=== PATIENT | male | born 1940 | race African-American/Black ===

== ENCOUNTER 2016-12-19 08:40 | Inpatient (IN) | payer MEDICARE, MEDICAID ==
[2016-12-19] VITALS (38 sets, daily range): BP systolic 127–167; BP diastolic 72–97
[~2016-12-19] VITALS: Ht 185.4 cm; Wt 90.7 kg
[~2016-12-19 08:40] MED LIST: AMLODIPINE BESY10 MG ORAL; CARAFATE1 G1 ORAL; COLACE100 MG ORAL; COREG3.125 MG ORAL; CYMBALTA20 MG ORAL; CYMBALTA30 MG ORAL; DIAZEPAM10 MG ORAL; DIFLUCAN100 MG ORAL; DILAUDID2 MG ORAL; DUONEB 0.5-3(2.53 ML HHN; Dextrose IV; IBUPROFEN600 MG ORAL; LACTULOSE20 GM/301 ORAL; LANTUS5 UNITS SUBQ; LEVAQUIN250 M1 ORAL; LEVEMIR FL100 UNIT/1 SUBQ; LEVOTHYROXINE25 MCG ORAL; LYRICA75 M1 ORAL; MEGACE40 MG PO; MEGESTROL ACETA20 M1 PO; MELATONIN1 MG PO; METFORMIN HCL500 M1 ORAL; METOCLOPRAM5 MG/5 M1 ORAL; METOCLOPRAMIDE H5 M1 ORAL; MIRALAX17 G2 ORAL; MULTIVITAMINS1 EAC8 ORAL; NAPROXEN25 G1 MC; NORCO 5-325 TA1 EACH ORAL; NORVASC10 MG ORAL; NORVASC5 MG ORAL; NOVOLIN R100 UNIT/1 SUBQ; NOVOLOG100 UNITS1 SUBQ; OMEPRAZOLE20 M2 ORAL; OXYCODONE HCL15 M1 ORAL; PRAVASTATIN SOD20 M1 ORAL; PROAIR HFA8.5 GM INH; PROMETHAZINE-C118 M1 ORAL; PROTONIX40 MG ORAL; SENOKOT1 TAB ORAL; SUCRALFATE1 GM/10 ML PO; UNOBMED; VITAMIN C500 M1 ORAL; ZINC SULFATE220 M1 ORAL
[2016-12-19 09:31] LABS: INR 0.9 (0.9-1.1); PROTHROMBIN TIME 9.9 SEC (9.30-11.50)
[2016-12-19] MEDS ORDERED: DIOVAN80 MG ORAL (09:50)
[2016-12-19] MEDS ORDERED: Lidocaine 1% Plain 30 ml INJ ONE (10:07)
[2016-12-19 10:28] LABS: ALANINE AMINOTRANSFERASE 18 U/L (12-78); ALBUMIN/GLOBULIN RATIO 0.8 (1.0-2.7); ANION GAP 9 mmol/L (5-15); ASPARTATE AMINO TRANSFERASE 14 U/L (15-37); CARBON DIOXIDE 26 MMOL/L (21-32); CHLORIDE 107 MMOL/L (98-107); CREATININE 1.2 MG/DL (0.55-1.30); POTASSIUM 3.2 MMOL/L (3.5-5.1); SODIUM 142 MMOL/L (136-145)
--- NOTE | 2016-12-19 10:39 | Pre-Procedure Note/Attestation ---
Pre-Procedure Note/Attestation Complete Prior to Procedure Planned Procedure: not applicable Procedure Narrative: IVC filter retrieval Indications for Procedure Pre-Operative Diagnosis: IVC filter no longer needed Attestation I attest that I discussed the nature of the procedure; its benefits; risks and complications; and alternatives (and the risks and benefits of such alternatives ), prior to the procedure, with the patient (or the patient's legal district sales representative). I attest that, if there was a reasonable possibility of needing a blood transfusion, the patient (or the patient's legal district sales representative) was given the [facility] standardized written summary, pursuant to the Izaiah Harjeet Blood Safety Act ([place] Health and Safety Code # 1645, as amended). I attest that I re-evaluated the patient just prior to the surgery and that there has been no change in the patient's H&P, except as documented below: CHENG FLEMING M.D. Dec 19, 2016 10:39
--- NOTE | 2016-12-19 10:44 | Moderate Sedation - Procedural ---
Moderate Sedation HPI Home Medication Active Scripts Insulin Detemir (LEVEMIR FLEXPEN) 100 Unit/1 Ml Insuln.pen, 10 UNITS SUBQ BID, # 300 UNITS 0 Refills Prov:Deirdre Walshles IRIDOLOGIST 06/27/15 Amlodipine Besylate (Norvasc) 10 Mg Tab, 10 MG ORAL DAILY, #1 TAB Prov:Deirdre Walsh De Anda IRIDOLOGIST 06/27/15 Polyethylene Glycol 3350* (MIRALAX*) 17 Gm Powd.pack, 17 GM ORAL BEDTIME, #1 PACK Prov:Deirdre Walsh De Anda IRIDOLOGIST 04/24/15 Lactulose (LACTULOSE*) 20 Gm/30 Ml Solution, 20 GM ORAL THREE TIMES A DAY for 1 Day, GM Prov:Mata Walshevelin De Anda IRIDOLOGIST 04/24/15 Docusate Sodium* (COLACE*) 100 Mg Capsule, 100 MG ORAL TWICE A DAY, #1 CAP Prov:Mata Walshevelin De Anda IRIDOLOGIST 04/24/15 Reported Medications Valsartan (DIOVAN) 80 Mg Tab, 80 MG ORAL DAILY, TAB 12/19/16 Megestrol Acetate (MEGESTROL ACETATE) 20 Mg Tablet, PO, TAB 09/15/15 Sucralfate (SUCRALFATE) 1 Gm/10 Ml Oral.susp, PO, ML 09/15/15 Insulin Regular, Human* (NOVOLIN R*) 100 Unit/1 Ml Vial, 10 SUBQ AC, UNITS 08/06/15 Insulin Glargine (Lantus) 5 Units Vial, 30 SUBQ BEDTIME, #1 EA 0 Refills 08/06/15 Omeprazole (OMEPRAZOLE) 20 Mg Capsule.dr, 20 MG ORAL DAILY, CAP 08/06/15 Megestrol Acetate (Megestrol Acetate) 40 Mg Tab, 40 MG PO BID, #10 TAB 0 Refills 08/06/15 Pravastatin Sod* (PRAVASTATIN SOD*) 20 Mg Tablet, ORAL BEDTIME, TAB 07/13/15 Naproxen (NAPROXEN) 25 Gm Powder, MC, GM 07/13/15 Duloxetine (Cymbalta) 20 Mg Cap, ORAL DAILY, CAP 07/13/15 Metformin Hcl* (METFORMIN HCL*) 500 Mg Tablet, ORAL TWICE A DAY, TAB 07/13/15 Levothyroxine Sodium* (LEVOTHYROXINE SODIUM*) 25 Mcg Tablet, 25 MCG ORAL DAILY, TAB Take in the morning on an empty stomach, at least 30 minutes before food. 05/16/15 Sennosides (Senna-Gen) 1 Tab Tab, 1 TAB ORAL DAILY, TAB 05/16/15 Pregabalin* (LYRICA*) 75 Mg Capsule, 75 MG ORAL THREE TIMES A DAY, CAP 05/16/15 Ascorbic Acid* (VITAMIN C*) 500 Mg Tablet, 500 MG ORAL DAILY, #30 TAB 0 Refills 05/16/15 Sucralfate* (CARAFATE*) 1 Gm Tablet, 1 GM ORAL FOUR TIMES A DAY, TAB 04/14/15 Patient History Allergies: Coded Allergies: AMOXICILLIN (Verified Allergy, Severe, break out, 12/19/16) AMPICILLIN (Unverified Allergy, Severe, break out , 12/19/16) PENICILLINS (Verified Allergy, Severe, break out , 12/19/16) PAST MEDICAL HISTORY: Past Surgeries: Social History: Pre-Procedural Mod Sedation Pre-Assessment Time: 10:40 Pre-Sedation Assessment: Elective Airway Assessment (Malampati): III Heart: normal Lungs: normal Abdomen: normal Extremities: normal Evaluation Hx of untoward rxns to mod sed: No Procedures/Plans: Radiology Plan for Moderate Sedation: Midazolam, Fentanyl ASA Score: II Informed Consent The nature of the procedure/sedation; its benefits; risks and complications; and alternatives (and the risks and benefits of such alternatives) were discussed with the patient (or their legal car sales representative), prior to the procedure. All questions were answered to the patient's (or their legal car sales representative's) satisfaction and the patient (or their legal car sales representative) gave informed consent to the procedure. I attest that I re-evaluated the patient just prior to the surgery and that there has been no change in the patient's H&P, except as documented below: Post Procedure Assessment Post Procedure TIme: 13:30 Communication: No Apparent Limitation Mental Status: Awake Respiration: Unlabored Skin Condition: WNL Adomen: WNL Nausea: NO Vomiting: NO CHENG FLEMING M.D. Dec 19, 2016 10:44
--- NOTE | 2016-12-19 10:51 | History & Physical ---
History and Physical History & Physicial History of present illness: 75-year-old male with history of inferior vena cava filter placement in 2013 for the venous thrombosis, filter no longer necessary, removal requested by referring physician Dr. Bowling Past medical history: Diabetes, hypertension, deep venous thrombosis Past surgical history: IVC filter, colon resection for CA, L nephrectomy, cholecystectomy, penile prothesis Allergies: Penicillin Review of systems: Left lower quadrant abdominal pain, currently being worked up Physical exam: HEENT: Strabismus Lungs: clear Heart: Regular rate and rhythm Abdomen: Nontender, positive bowel sounds Impression: Patient was resolved deep venous thrombosis, per discussion with referring physician, IVC filter no longer needed Plan: Attempt IVC filter removal. Procedure, possible complications discussed with pt. He agrees to proceed. CHENG FLEMING M.D. Dec 19, 2016 10:51
[2016-12-19] MEDS ORDERED: fentaNYL 100 mcg/2 mL IV ONE (11:36)
[2016-12-19 11:39] LABS: BASOPHILS % (AUTO) 1.2 % (0.0-2.0); LYMPHOCYTES % (AUTO) 36.2 % (20.0-45.0); MEAN CORPUSCULAR HEMOGLOBIN 28.8 PG (27.0-31.0); MEAN CORPUSCULAR HGB CONC 31.3 G/DL (32.0-36.0); MEAN CORPUSCULAR VOLUME 92 FL (80-99); MEAN PLATELET VOLUME 7.3 FL (6.5-10.1); MONOCYTES % (AUTO) 4.9 % (1.0-10.0); NEUTROPHILS % (AUTO) 52.7 % (45.0-75.0); PLATELET COUNT 295 K/UL (150-450); RED BLOOD COUNT 4.78 M/UL (4.70-6.10); RED CELL DISTRIBUTION WIDTH 14.8 % (11.6-14.8); WHITE BLOOD COUNT 5.7 K/UL (4.8-10.8)
--- NOTE | 2016-12-19 13:41 | Brief Operative Note ---
Immediate Post Operative Note Operative Note Pre-op Diagnosis: IVC filter no longer needed Procedure: Inferior vena cavogram, attempted IVC filter retrieval Post-op Diagnosis: Same Findings: other - unable to retrieve IVC filter due to inability to disengage struts from IVC wall. Filter collapsed resulting in significant narrowing of IVC Surgeon: Dayana Coleman Anesthesia: moderate sedation Specimen: none Complications: yes - unable to retrieve IVC filter due to inability to disengage struts from IVC wall. Filter collapsed resulting in significant narrowing of IVC Condition: stable Fluids: none Estimated Blood Loss: minimal Drains: none Implant(s) used?: No CHENG COLEMAN M.D. Dec 19, 2016 13:41
[2016-12-19] MEDS ORDERED: Heparin 25,000u/D5W 500ml 500 ML IV SCH (14:15)
[2016-12-19] MEDS ORDERED: Heparin 5000 units/ml inj IV ONE ×3 (14:15→21:45)
[2016-12-19] MEDS ORDERED: Hydromorphone 0.5mg/0.5ml inj IVP ONE (14:30)
[2016-12-19] MEDS ORDERED: Hydromorphone 0.5mg/0.5ml inj ONE (14:32)
--- NOTE | 2016-12-19 15:24 | Diagnostic Imaging Report ---
Indication: FB evaluation of inferior vena cava filter prior to removal attempts Technique: Supine view of the abdomen Comparison: 05/20/2015 Findings: There is a Cook Alejandro Tulip inferior vena cava filter in the expected position. Surgical clips are demonstrated. Considerable stool is seen in the left colon Impression: Filter confirmed to be a Cook Alejandro Tulip inferior vena cava filter
[2016-12-19] MEDS ORDERED: Nitroglycerin Subl 0.4mg tab SL PRN (15:30)
[2016-12-19] MEDS ORDERED: Miralax 17gm pkt ORAL PRN (15:30)
[2016-12-19] MEDS ORDERED: Hydromorphone 0.5mg/0.5ml inj IVP PRN ×2 (15:30)
--- NOTE | 2016-12-19 15:45 | Internal Med Progress Note ---
Subjective Physician Name Marco Bowling Attending Physician Marco Bowling MD Current Medications Medications (Trade) Dose Ordered Sig/Jose Route PRN Reason Start Time Stop Time Status Last Admin Dose Admin Acetaminophen (Tylenol) 650 mg Q4H PRN ORAL Mild Pain (Pain Scale 1-3) 12/19/16 15:30 01/18/17 15:29 UNV Acetaminophen (Tylenol) 650 mg Q4H PRN ORAL fever 12/19/16 15:30 01/18/17 15:29 UNV Amlodipine Besylate (Norvasc) 10 mg DAILY ORAL 12/19/16 15:30 01/18/17 15:29 UNV Ascorbic Acid (Vitamin C) 500 mg DAILY ORAL 12/20/16 09:00 01/19/17 08:59 UNV Bisacodyl (Dulcolax) 10 mg DAILYPRN PRN RECTAL Constipation 12/19/16 15:30 01/18/17 15:29 UNV Dextrose (Dextrose 50%) STAT PRN IV Hypoglycemia 12/19/16 15:30 01/18/17 15:29 UNV Dextrose (Dextrose 50%) STAT PRN IV Hypoglycemia 12/19/16 15:30 01/18/17 15:29 UNV Docusate Sodium (Colace) 100 mg TWICE A DAY ORAL 12/19/16 18:00 01/18/17 17:59 UNV Duloxetine HCl (Cymbalta) 30 mg DAILY ORAL 12/20/16 09:00 01/19/17 08:59 UNV Heparin Sodium (Porcine) (Heparin 5000 units/ml) 5,000 units ONCE ONCE IV 12/19/16 15:30 12/19/16 15:31 UNV Heparin Sodium/ Dextrose 500 ml @ 32.658 mls/ hr adjust per protocol IV 12/19/16 14:15 01/18/17 14:14 12/19/16 15:34 Heparin Sodium/ Dextrose 500 ml @ 32.658 mls/ hr adjust per protocol IV 12/19/16 15:30 01/18/17 15:29 UNV Hydromorphone HCl (Dilaudid) 0.5 mg Q3HR PRN IVP For Pain 12/19/16 15:30 12/26/16 15:29 UNV Hydromorphone HCl (Dilaudid) 1 mg Q3HR PRN IVP Moderate Pain (Pain Scale 4-6) 12/19/16 15:30 12/26/16 15:29 UNV Hydromorphone HCl (Dilaudid) 2 mg Q3HR PRN IVP Severe Pain (Pain Scale 7-10) 12/19/16 15:30 12/26/16 15:29 UNV Insulin Aspart (NovoLOG) BEFORE MEALS AND HS SUBQ 12/19/16 16:30 01/18/17 16:29 UNV Insulin Detemir (Levemir) 10 units BID SUBQ 12/19/16 18:00 01/18/17 17:59 UNV Irbesartan (Avapro) 75 mg DAILY ORAL 12/20/16 09:00 01/19/17 08:59 UNV Lactulose (Cephulac) 20 gm THREE TIMES A DAY ORAL 12/19/16 18:00 01/18/17 17:59 UNV Levothyroxine Sodium (Synthroid) 25 mcg DAILY ORAL 12/20/16 09:00 01/19/17 08:59 UNV Magnesium Hydroxide (Mom) 30 ml HSPRN PRN ORAL Constipation 12/19/16 15:30 01/18/17 15:29 UNV Metformin HCl (Glucophage) 1,000 mg TWICE A DAY ORAL 12/20/16 08:00 01/19/17 07:59 UNV Nitroglycerin (Ntg) 0.4 mg Q5M PRN SL Prn Chest Pain 12/19/16 15:30 01/18/17 15:29 UNV Ondansetron HCl (Zofran) 4 mg Q6H PRN IVP Nausea & Vomiting 12/19/16 15:30 01/18/17 15:29 UNV Polyethylene Glycol (Miralax) 17 gm BEDTIME ORAL 12/19/16 21:00 01/18/17 20:59 UNV Polyethylene Glycol (Miralax) 17 gm DAILYPRN PRN ORAL Constipation 12/19/16 15:30 01/18/17 15:29 UNV Pravastatin Sodium (Pravachol) 40 mg BEDTIME ORAL 12/19/16 21:00 01/18/17 20:59 UNV Pregabalin (Lyrica) 75 mg THREE TIMES A DAY ORAL 12/19/16 18:00 01/18/17 17:59 UNV Sennosides (Senokot) 1 mg DAILY ORAL 12/20/16 09:00 01/19/17 08:59 UNV Sucralfate (Carafate) 1 gm FOUR TIMES A DAY ORAL 12/19/16 18:00 01/18/17 17:59 UNV Allergies: Coded Allergies: AMOXICILLIN (Verified Allergy, Severe, break out, 12/19/16) AMPICILLIN (Unverified Allergy, Severe, break out , 12/19/16) PENICILLINS (Verified Allergy, Severe, break out , 12/19/16) Subjective awake, alert, responsive, C/O back pain Objective Last Vital Signs Date Time Temp Pulse Resp B/P (MAP) Pulse Ox O2 Delivery O2 Flow Rate FiO2 12/19/16 15:06 97.8 12/19/16 14:38 78 15 141/89 96 Room Air 12/19/16 13:45 3.0 Laboratory Tests Test 12/19/16 09:00 White Blood Count 5.7 K/UL (4.8-10.8) Red Blood Count 4.78 M/UL (4.70-6.10) Hemoglobin 13.8 G/DL (14.2-18.0) L Hematocrit 43.9 % (42.0-52.0) Mean Corpuscular Volume 92 FL (80-99) Mean Corpuscular Hemoglobin 28.8 PG (27.0-31.0) Mean Corpuscular Hemoglobin Concent 31.3 G/DL (32.0-36.0) L Red Cell Distribution Width 14.8 % (11.6-14.8) Platelet Count 295 K/UL (150-450) Mean Platelet Volume 7.3 FL (6.5-10.1) Neutrophils (%) (Auto) 52.7 % (45.0-75.0) Lymphocytes (%) (Auto) 36.2 % (20.0-45.0) Monocytes (%) (Auto) 4.9 % (1.0-10.0) Eosinophils (%) (Auto) 5.0 % (0.0-3.0) H Basophils (%) (Auto) 1.2 % (0.0-2.0) Prothrombin Time 9.9 SEC (9.30-11.50) Prothromb Time International Ratio 0.9 (0.9-1.1) Activated Partial Thromboplast Time 28 SEC (23-33) Sodium Level 142 MMOL/L (136-145) Potassium Level 3.2 MMOL/L (3.5-5.1) L Chloride Level 107 MMOL/L (98-107) Carbon Dioxide Level 26 MMOL/L (21-32) Anion Gap 9 mmol/L (5-15) Blood Urea Nitrogen 12 mg/dL (7-18) Creatinine 1.2 MG/DL (0.55-1.30) Estimat Glomerular Filtration Rate mL/min (>60) Glucose Level 264 MG/DL (74-106) H Calcium Level 9.0 MG/DL (8.5-10.1) Total Bilirubin 0.3 MG/DL (0.2-1.0) Aspartate Amino Transf (AST/SGOT) 14 U/L (15-37) L Alanine Aminotransferase (ALT/SGPT) 18 U/L (12-78) Alkaline Phosphatase 121 U/L (46-116) H Total Protein 7.0 G/DL (6.4-8.2) Albumin 3.1 G/DL (3.4-5.0) L Globulin 3.9 g/dL Albumin/Globulin Ratio 0.8 (1.0-2.7) L Intake and Output 12/19/16 12/20/16 19:00 07:00 Intake Total 850 ml Output Total 0 ml Balance 850 ml Intake IV Total 850 ml Output Estimated Blood Loss 0 ml # Voids 1 Objective General: No acute distress, awake and alert HEENT: NCAT, sclera anicteric, PERRL, EOMI. Neck: Supple, no significant jugular venous distention, Lungs: fair inspiratory effort, no accessory muscle use, , no Wheeze or Rales. Heart: Regular rate and rhythm, normal S1/S2, no murmur Abdomen: soft, nontender, nondistended. Normoactive bowel sounds, Obesity, Midline surgical scar. / Rectal: Refused and deferred. Extremities: No Cyanosis , clubbing or edema. Neuro: A&O x 3, Able to move all extremities Skin: warm, no rashes or lesions Assessment/Plan Assessment/Plan 1. IVC filter thrombosis. 2. Chronic constipation 3. History of colon cancer. 4. Hypertension. 5. Diabetes type 2. 6. Chronic obstructive pulmonary disease. 7. Coronary artery disease. 8. Peptic ulcer disease. 9. Dyslipidemia. 10. Hypothyroidism. Plan: start Heparin Drip discuss with [facility] transfer center. resume home medication monitor labs and BS. Full code Marco Bowling MD Dec 19, 2016 15:45
[2016-12-19 16:35] LABS: BASOPHILS % (AUTO) 0.4 % (0.0-2.0); EOSINOPHILS % (AUTO) 3.9 % (0.0-3.0); LYMPHOCYTES % (AUTO) 27.1 % (20.0-45.0); MEAN CORPUSCULAR HEMOGLOBIN 28.6 PG (27.0-31.0); MEAN CORPUSCULAR HGB CONC 31.1 G/DL (32.0-36.0); MEAN CORPUSCULAR VOLUME 92 FL (80-99); MONOCYTES % (AUTO) 4.5 % (1.0-10.0); NEUTROPHILS % (AUTO) 64.1 % (45.0-75.0); PLATELET COUNT 284 K/UL (150-450); RED BLOOD COUNT 4.34 M/UL (4.70-6.10); RED CELL DISTRIBUTION WIDTH 14.1 % (11.6-14.8)
--- NOTE | 2016-12-19 16:39 | Diagnostic Imaging Report ---
Indication: 75-year-old male with history of removal inferior vena cava filter placement 3 years ago, now presents for removal. Technique: Informed consent obtained prior to procedure. Risks, including but limited to hemorrhage, infection, inferior vena cava damage, unsuccessful retrieval, sedation complication discussed with patient, all questions answered. He indicated his willingness to proceed. Procedure timeout performed. Prior imaging studies reviewed. Total sterile technique, including sterile gloves and hand hygiene, hat, mask, sterile gown, large sterile drape, and preparation with 2% chlorhexidine utilized.. Under real-time ultrasound guidance, puncture right internal jugular vein using 1-gauge micropuncture needle, passage 108 guidewire, insertion 4 Zimbabwean introducer, insertion 0.035 guidewire, over which was passed a 5 [place]an straight flush catheter. This was used to perform inferior venacavogram. Over a guidewire, the catheter was exchanged for the [employer] retrieval assembly. The of of the filter was engaged with the snare, and the retrieval assembly passed over the filter. However, the legs would not disengage from the wall. The the filter was then noted to be collapsed, without reexpanded after release by the sheath. The sheath was therefore exchange for a 16 [place]an sheath. Was reengaged. Aggressive attempts made at passing the sheath over the filter, but again the filter would not disengage from the inferior vena cava wall. After multiple further attempts at passing the sheath over the filter, attempt at filter removal was abandoned. An inferior venacavogram was performed. This demonstrates collapse of the top of the filter, still some expansion of the legs, but collapse of the inferior vena cava over the filter results in significant stenosis and decreased flow velocity. The 16 [place]an sheath was removed, and pressure held until hemostasis was achieved. A heparin drip was ordered. Arrangements were made to transfer the patient to [facility] for urgent advanced filter retrieval Total fluoroscopy time 23.7 minutes. Total dose area product 1157 dGycm2 Comparison: None Findings: Initial inferior venacavogram demonstrates patency of the inferior vena cava. No intracaval or infiltrate thrombus. A lateral strut appears to protrude slightly beyond the caval lumen to the right of midline, and the left shoulder appears to protrude very slightly the, caval lumen to the left of midline. It is uncertain whether this represents true protrusion or just tenting of the wall, however. There is slight narrowing of the inferior vena cava at the filter position. Images after attempted filter retrieval demonstrate collapse of the upper portion of the filter, to which the inferior vena cava wall appears to be attached and therefore is also collapsed. A small filling defect may reflect a small amount of thrombus formation. Impression: Unsuccessful attempt at inferior vena cava filter removal, as described. Procedure unsuccessful due to failure of the hooks to release from the inferior vena cava wall. Failure the filter to reexpand after release, resulting in significant stenosis of the inferior vena cava. For this reason, patient is being anticoagulated and transferred to [facility] for advanced filter retrieval
[2016-12-19] MEDS: NovoLOG Insulin Flexpen SUBQ SCH ×2 (17:36→21:18)
[2016-12-19] MEDS: Lactulose 20gm/30ml UDC ORAL SCH ×2 (18:00→18:04)
[2016-12-19] MEDS: Docusate 100mg cap ORAL SCH (18:04)
[2016-12-19] MEDS: Sucralfate 1gm tab ORAL SCH ×2 (18:05→21:00)
[2016-12-19] MEDS: Lyrica 75mg cap ORAL SCH (18:05)
[2016-12-19] MEDS: Heparin 25,000u/D5W 500ml 500 ML IV SCH ×2 (19:16→22:05)
[2016-12-19] MEDS ORDERED: Miralax 17gm pkt ORAL SCH (21:00)
[2016-12-19] MEDS ORDERED: Milk of Magnesia 30ml Ud ORAL PRN (21:00)
[2016-12-19] MEDS: Levemir Flexpen SUBQ SCH (21:17)
[2016-12-20] VITALS (7 sets, daily range): BP systolic 119–158; BP diastolic 69–86
[2016-12-20 05:48] LABS: ALANINE AMINOTRANSFERASE 21 U/L (12-78); ALBUMIN/GLOBULIN RATIO 0.8 (1.0-2.7); ANION GAP 12 mmol/L (5-15); ASPARTATE AMINO TRANSFERASE 17 U/L (15-37); CALCIUM 9.2 MG/DL (8.5-10.1); CARBON DIOXIDE 24 MMOL/L (21-32); CHLORIDE 107 MMOL/L (98-107); CREATININE 1.1 MG/DL (0.55-1.30); MAGNESIUM 1.8 MG/DL (1.8-2.4); POTASSIUM 3.1 MMOL/L (3.5-5.1); SODIUM 143 MMOL/L (136-145); TOTAL PROTEIN 6.7 G/DL (6.4-8.2)
[2016-12-20 05:50] LABS: PROTHROMBIN TIME 10.9 SEC (9.30-11.50)
[2016-12-20] MEDS: NovoLOG Insulin Flexpen SUBQ SCH ×4 (06:00→21:00)
[2016-12-20] MEDS: Levothyroxine 25mcg tab ORAL SCH (06:03)
[2016-12-20] MEDS: Heparin 25,000u/D5W 500ml 500 ML IV SCH ×4 (07:11→22:28)
[2016-12-20] MEDS: Ascorbic Acid 500mg tab ORAL SCH (08:37)
[2016-12-20] MEDS: Sucralfate 1gm tab ORAL SCH ×4 (08:37→21:22)
[2016-12-20] MEDS: Lyrica 75mg cap ORAL SCH ×3 (08:38→18:09)
[2016-12-20] MEDS: Lactulose 20gm/30ml UDC ORAL SCH ×3 (08:39→18:00)
[2016-12-20] MEDS: Docusate 100mg cap ORAL SCH ×2 (08:39→18:07)
[2016-12-20] MEDS: DULoxetine 30mg cap ORAL SCH (08:40)
[2016-12-20] MEDS: Sennosides 8.6mg ORAL SCH (08:40)
[2016-12-20] MEDS: metFORMIN 500mg tab ORAL SCH ×2 (08:41→18:14)
[2016-12-20] MEDS: Levemir Flexpen SUBQ SCH ×2 (08:44→21:25)
[2016-12-20] MEDS ORDERED: Albuterol ud Inhalation HHN PRN (10:45)
--- NOTE | 2016-12-20 10:49 | Internal Med Progress Note ---
Subjective Date of Service: Dec 20, 2016 Physician Name Callejas,Tyra Attending Physician Marco Bowling MD Current Medications Medications (Trade) Dose Ordered Sig/Jose Route PRN Reason Start Time Stop Time Status Last Admin Dose Admin Acetaminophen (Tylenol) 650 mg Q4H PRN ORAL Headache 12/19/16 15:30 01/18/17 15:29 Acetaminophen (Tylenol) 650 mg Q4H PRN ORAL T>100.5 12/19/16 15:30 01/18/17 15:29 Amlodipine Besylate (Norvasc) 10 mg DAILY ORAL 12/19/16 16:00 01/18/17 15:59 12/20/16 08:39 Ascorbic Acid (Vitamin C) 500 mg DAILY ORAL 12/20/16 09:00 01/19/17 08:59 12/20/16 08:37 Bisacodyl (Dulcolax) 10 mg DAILYPRN PRN RECTAL Constipation 12/19/16 15:30 01/18/17 15:29 Dextrose (Dextrose 50%) STAT PRN IV Hypoglycemia 12/19/16 16:00 01/18/17 15:59 Docusate Sodium (Colace) 100 mg TWICE A DAY ORAL 12/19/16 18:00 01/18/17 17:59 12/20/16 08:39 Duloxetine HCl (Cymbalta) 30 mg DAILY ORAL 12/20/16 09:00 01/19/17 08:59 12/20/16 08:40 Heparin Sodium/ Dextrose 500 ml @ 30.844 mls/ hr adjust per protocol IV 12/20/16 06:45 01/19/17 06:44 12/20/16 09:45 Hydromorphone HCl (Dilaudid) 0.5 mg Q3H PRN IVP Mild Pain (Pain Scale 1-3) 12/19/16 15:30 12/26/16 15:29 Hydromorphone HCl (Dilaudid) 1 mg Q3H PRN IVP Moderate Pain (Pain Scale 4-6) 12/19/16 15:30 12/26/16 15:29 Hydromorphone HCl (Dilaudid) 2 mg Q3H PRN IVP Severe Pain (Pain Scale 7-10) 12/19/16 15:30 12/26/16 15:29 12/20/16 07:57 Insulin Aspart (NovoLOG) BEFORE MEALS AND HS SUBQ 12/19/16 17:00 01/18/17 16:59 12/20/16 06:00 Insulin Detemir (Levemir) 10 units Q12HR SUBQ 12/19/16 21:00 01/18/17 20:59 12/20/16 08:44 Irbesartan (Avapro) 75 mg DAILY ORAL 12/20/16 09:00 01/19/17 08:59 12/20/16 08:39 Lactulose (Cephulac) 20 gm THREE TIMES A DAY ORAL 12/19/16 18:00 01/18/17 17:59 Levothyroxine Sodium (Synthroid) 25 mcg ACBREAKFAST ORAL 12/20/16 06:30 01/19/17 06:29 12/20/16 06:03 Magnesium Hydroxide (Mom) 30 ml HSPRN PRN ORAL Constipation 12/19/16 21:00 01/18/17 20:59 Metformin HCl (Glucophage) 1,000 mg TWICE A DAY ORAL 12/20/16 09:00 01/19/17 08:59 Nitroglycerin (Ntg) 0.4 mg Q5M PRN SL Prn Chest Pain 12/19/16 15:30 01/18/17 15:29 Ondansetron HCl (Zofran) 4 mg Q6H PRN IVP Nausea & Vomiting 12/19/16 15:30 01/18/17 15:29 Polyethylene Glycol (Miralax) 17 gm BEDTIME ORAL 12/20/16 21:00 01/19/17 20:59 Polyethylene Glycol (Miralax) 17 gm DAILYPRN PRN ORAL Constipation 12/19/16 15:30 01/18/17 15:29 Potassium Chloride (K-Dur) 40 meq TWICE A DAY ORAL 12/20/16 09:00 12/21/16 08:59 12/20/16 08:39 Pravastatin Sodium (Pravachol) 40 mg BEDTIME ORAL 12/19/16 21:00 01/18/17 20:59 Pregabalin (Lyrica) 75 mg THREE TIMES A DAY ORAL 12/19/16 18:00 01/18/17 17:59 12/20/16 08:38 Sennosides (Senokot) 1 mg DAILY ORAL 12/20/16 09:00 01/19/17 08:59 12/20/16 08:40 Sucralfate (Carafate) 1 gm FOUR TIMES A DAY ORAL 12/19/16 18:00 01/18/17 17:59 12/20/16 08:37 Allergies: Coded Allergies: AMOXICILLIN (Verified Allergy, Severe, break out, 12/19/16) AMPICILLIN (Unverified Allergy, Severe, break out , 12/19/16) PENICILLINS (Verified Allergy, Severe, break out , 12/19/16) ROS Limited/Unobtainable: No Constitutional: Reports: no symptoms HEENT: Reports: no symptoms Cardiovascular: Reports: no symptoms Respiratory: Reports: shortness of breath Gastrointestinal/Abdominal: Reports: no symptoms Genitourinary: Reports: no symptoms Neurologic/Psychiatric: Reports: no symptoms Subjective 75 YO M admitted for IVC removal-S/P unsuccessful IVC removal 12/19/16. Cover for [facility]-Dr Bowling. Await transfer to [facility] vs [facility] Objective Last Vital Signs Date Time Temp Pulse Resp B/P (MAP) Pulse Ox O2 Delivery O2 Flow Rate FiO2 12/20/16 08:39 157/80 12/20/16 08:39 85 12/20/16 08:00 97.9 20 97 Room Air 12/20/16 06:58 3.0 32 General Appearance: WD/WN, no apparent distress, alert EENT: PERRL/EOMI, normal ENT inspection Neck: non-tender, normal alignment, supple Cardiovascular: normal peripheral pulses, normal rate, regular rhythm, no gallop/murmur, no JVD Respiratory/Chest: chest wall non-tender, no accessory muscle use, respiratory distress, crackles/rales, expiratory wheezing Abdomen: normal bowel sounds, non tender, soft, no organomegaly, no mass Extremities: normal range of motion, non-tender 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, no motor/sensory deficits Skin: normal pigmentation, warm/dry Laboratory Tests Test 12/19/16 16:05 12/19/16 21:15 12/20/16 04:00 White Blood Count 7.0 K/UL (4.8-10.8) Red Blood Count 4.34 M/UL (4.70-6.10) L Hemoglobin 12.4 G/DL (14.2-18.0) L Hematocrit 39.9 % (42.0-52.0) L Mean Corpuscular Volume 92 FL (80-99) Mean Corpuscular Hemoglobin 28.6 PG (27.0-31.0) Mean Corpuscular Hemoglobin Concent 31.1 G/DL (32.0-36.0) L Red Cell Distribution Width 14.1 % (11.6-14.8) Platelet Count 284 K/UL (150-450) Mean Platelet Volume 8.0 FL (6.5-10.1) Neutrophils (%) (Auto) 64.1 % (45.0-75.0) Lymphocytes (%) (Auto) 27.1 % (20.0-45.0) Monocytes (%) (Auto) 4.5 % (1.0-10.0) Eosinophils (%) (Auto) 3.9 % (0.0-3.0) H Basophils (%) (Auto) 0.4 % (0.0-2.0) Activated Partial Thromboplast Time 138 SEC (23-33) H 61 SEC (23-33) H 128 SEC (23-33) H Prothrombin Time 10.9 SEC (9.30-11.50) Prothromb Time International Ratio 1.0 (0.9-1.1) Sodium Level 143 MMOL/L (136-145) Potassium Level 3.1 MMOL/L (3.5-5.1) L Chloride Level 107 MMOL/L (98-107) Carbon Dioxide Level 24 MMOL/L (21-32) Anion Gap 12 mmol/L (5-15) Blood Urea Nitrogen 12 mg/dL (7-18) Creatinine 1.1 MG/DL (0.55-1.30) Estimat Glomerular Filtration Rate mL/min (>60) Glucose Level 268 MG/DL (74-106) H Calcium Level 9.2 MG/DL (8.5-10.1) Magnesium Level 1.8 MG/DL (1.8-2.4) Total Bilirubin 0.5 MG/DL (0.2-1.0) Aspartate Amino Transf (AST/SGOT) 17 U/L (15-37) Alanine Aminotransferase (ALT/SGPT) 21 U/L (12-78) Alkaline Phosphatase 115 U/L (46-116) Total Protein 6.7 G/DL (6.4-8.2) Albumin 2.9 G/DL (3.4-5.0) L Globulin 3.8 g/dL Albumin/Globulin Ratio 0.8 (1.0-2.7) L Assessment/Plan Problem List: (1) Diabetes mellitus, type II Assessment & Plan: Cont levemir, novolog sliding scale and glucophage. (2) Deep vein thrombosis (DVT) Assessment & Plan: Failed IVC filter removal on 12/19/16. Await transfer to [facility] (3) Hypothyroidism Assessment & Plan: Cont levoxyl (4) Hypercholesterolemia Assessment & Plan: Continue pravachol (5) CAD (coronary artery disease) (6) COPD (chronic obstructive pulmonary disease) Assessment & Plan: Cont Breo and albuterol nebs. see pulmonary note. (7) HTN (hypertension) Assessment & Plan: Continue avapro and norvasc Status: not improved TYRA CALLEJAS Dec 20, 2016 10:49
[2016-12-20] MEDS ORDERED: Midazolam 2mg/2ml Inj IVP ONE (11:36)
[2016-12-20] MEDS ORDERED: fentaNYL 100 mcg/2 mL IV ONE (11:36)
[2016-12-20] MEDS: Breo Ellipta 200/25mcg-14 dose INH SCH ×2 (11:46→12:01)
--- NOTE | 2016-12-20 12:38 | Consultation ---
History of Present Illness General Date patient seen: Dec 20, 2016 Present Illness HPI 75 year old male wih hx of Colon cancer resection in 1985, Left nephrectomy secondary to renal cancer in 2003, IVC filter 2013 because of Pulmonary embolism , DM, COPD, hyothyroid presented to Radiology of [facility] for removal of his IVC filter. All attempts to remove it were unsuccessful. Pt is admitted to [facility] waiting for transfer to [facility]. Allergies: Coded Allergies: AMOXICILLIN (Verified Allergy, Severe, break out, 12/19/16) AMPICILLIN (Unverified Allergy, Severe, break out , 12/19/16) PENICILLINS (Verified Allergy, Severe, break out , 12/19/16) Medication History Scheduled Amlodipine Besylate (Norvasc), 10 MG ORAL DAILY Ascorbic Acid* (Vitamin C*), 500 MG ORAL DAILY, (Reported) Docusate Sodium* (Colace*), 100 MG ORAL TWICE A DAY Duloxetine (Cymbalta), Unknown Dose ORAL DAILY, (Reported) Insulin Detemir (Levemir Flexpen), 10 UNITS SUBQ BID Insulin Glargine (Lantus), 30 SUBQ BEDTIME, (Reported) Insulin Regular, Human* (Novolin R*), 10 SUBQ AC, (Reported) Lactulose (Lactulose*), 20 GM ORAL THREE TIMES A DAY Levothyroxine Sodium* (Levothyroxine Sodium*), 25 MCG ORAL DAILY, (Reported) Megestrol Acetate (Megestrol Acetate), 40 MG PO BID, (Reported) Metformin Hcl* (Metformin Hcl*), Unknown Dose ORAL TWICE A DAY, (Reported) Omeprazole (Omeprazole), 20 MG ORAL DAILY, (Reported) Polyethylene Glycol 3350* (Miralax*), 17 GM ORAL BEDTIME Pravastatin Sod* (Pravastatin Sod*), Unknown Dose ORAL BEDTIME, (Reported) Pregabalin* (Lyrica*), 75 MG ORAL THREE TIMES A DAY, (Reported) Sennosides (Senna-Gen), 1 TAB ORAL DAILY, (Reported) Sucralfate* (Carafate*), 1 GM ORAL FOUR TIMES A DAY, (Reported) Valsartan (Diovan), 80 MG ORAL DAILY, (Reported) Miscellaneous Medications Megestrol Acetate (Megestrol Acetate), Unknown Dose PO, (Reported) Naproxen (Naproxen), Unknown Dose MC, (Reported) Sucralfate (Sucralfate), Unknown Dose PO, (Reported) Patient History Healthcare decision maker Resuscitation status Full Code Advanced Directive on File Past Medical/Surgical History Past Medical/Surgical History: (1) HTN (hypertension) (2) Deep vein thrombosis (DVT) (3) Hypothyroidism (4) CAD (coronary artery disease) (5) COPD (chronic obstructive pulmonary disease) (6) Elevated CEA (7) Colon cancer metastasized to liver Physical Exam General Appearance: WD/WN Lines, tubes and drains: peripheral HEENT: normocephalic, atraumatic Neck: non-tender, supple Breasts: no masses Cardiovascular/Chest: normal peripheral pulses, normal rate Abdomen: normal bowel sounds, non tender Genitourinary/Rectal: normal genital exam Extremities: normal range of motion, non-tender Last 24 Hour Vital Signs Date Time Temp Pulse Resp B/P (MAP) Pulse Ox O2 Delivery O2 Flow Rate FiO2 12/20/16 12:02 78 16 96 Nasal Cannula 2.0 28 12/20/16 12:01 75 16 96 Nasal Cannula 2.0 28 12/20/16 12:00 97.4 73 19 158/69 97 Nasal Cannula 3.0 12/20/16 08:39 157/80 12/20/16 08:39 85 157/80 12/20/16 08:00 97.9 88 20 157/80 97 Room Air 12/20/16 08:00 84 12/20/16 06:58 97 Nasal Cannula 3.0 32 12/20/16 06:58 Nasal Cannula 3.0 32 12/20/16 05:58 98.7 12/20/16 04:00 98.7 80 20 130/76 98 Room Air 12/20/16 03:56 75 12/20/16 00:18 77 12/20/16 00:00 98.8 79 20 125/77 97 Room Air 12/19/16 20:00 99.3 85 20 139/77 95 Room Air 12/19/16 20:00 84 12/19/16 19:51 Nasal Cannula 3.0 32 12/19/16 19:51 97 Nasal Cannula 3.0 32 12/19/16 17:21 98.8 80 20 100 Nasal Cannula 3.0 76 97 12/19/16 16:22 79 129/75 12/19/16 16:00 99.8 79 22 129/75 95 12/19/16 16:00 82 12/19/16 15:06 97.8 12/19/16 14:38 97.8 78 15 141/89 96 Room Air 12/19/16 14:20 79 17 143/78 97 Room Air 12/19/16 14:10 80 18 154/89 97 Room Air 12/19/16 13:59 84 15 137/82 98 Room Air 12/19/16 13:50 80 13 133/79 100 Room Air 12/19/16 13:45 82 14 132/84 100 Nasal Cannula 3.0 12/19/16 13:40 98.0 78 15 131/89 100 Nasal Cannula 3.0 12/19/16 13:35 12 141/87 100 12/19/16 13:30 14 128/88 100 12/19/16 13:25 79 21 150/90 100 12/19/16 13:20 86 21 141/97 100 12/19/16 13:15 86 21 139/85 100 12/19/16 13:10 82 16 144/82 100 12/19/16 13:05 88 14 134/84 100 12/19/16 13:00 82 14 143/84 100 12/19/16 12:55 82 14 143/84 100 12/19/16 12:55 82 14 143/84 100 Nasal Cannula 3.0 12/19/16 12:50 80 12 141/85 100 12/19/16 12:45 81 12 141/85 100 Laboratory Tests Test 12/19/16 16:05 12/19/16 21:15 12/20/16 04:00 White Blood Count 7.0 K/UL (4.8-10.8) Red Blood Count 4.34 M/UL (4.70-6.10) L Hemoglobin 12.4 G/DL (14.2-18.0) L Hematocrit 39.9 % (42.0-52.0) L Mean Corpuscular Volume 92 FL (80-99) Mean Corpuscular Hemoglobin 28.6 PG (27.0-31.0) Mean Corpuscular Hemoglobin Concent 31.1 G/DL (32.0-36.0) L Red Cell Distribution Width 14.1 % (11.6-14.8) Platelet Count 284 K/UL (150-450) Mean Platelet Volume 8.0 FL (6.5-10.1) Neutrophils (%) (Auto) 64.1 % (45.0-75.0) Lymphocytes (%) (Auto) 27.1 % (20.0-45.0) Monocytes (%) (Auto) 4.5 % (1.0-10.0) Eosinophils (%) (Auto) 3.9 % (0.0-3.0) H Basophils (%) (Auto) 0.4 % (0.0-2.0) Activated Partial Thromboplast Time 138 SEC (23-33) H 61 SEC (23-33) H 128 SEC (23-33) H Prothrombin Time 10.9 SEC (9.30-11.50) Prothromb Time International Ratio 1.0 (0.9-1.1) Sodium Level 143 MMOL/L (136-145) Potassium Level 3.1 MMOL/L (3.5-5.1) L Chloride Level 107 MMOL/L (98-107) Carbon Dioxide Level 24 MMOL/L (21-32) Anion Gap 12 mmol/L (5-15) Blood Urea Nitrogen 12 mg/dL (7-18) Creatinine 1.1 MG/DL (0.55-1.30) Estimat Glomerular Filtration Rate mL/min (>60) Glucose Level 268 MG/DL (74-106) H Calcium Level 9.2 MG/DL (8.5-10.1) Magnesium Level 1.8 MG/DL (1.8-2.4) Total Bilirubin 0.5 MG/DL (0.2-1.0) Aspartate Amino Transf (AST/SGOT) 17 U/L (15-37) Alanine Aminotransferase (ALT/SGPT) 21 U/L (12-78) Alkaline Phosphatase 115 U/L (46-116) Total Protein 6.7 G/DL (6.4-8.2) Albumin 2.9 G/DL (3.4-5.0) L Globulin 3.8 g/dL Albumin/Globulin Ratio 0.8 (1.0-2.7) L Height (Feet): 6 Height (Inches): 1.00 Weight (Pounds): 200 Medications Current Medications Medications (Trade) Dose Ordered Sig/Jose Route PRN Reason Start Time Stop Time Status Last Admin Dose Admin Acetaminophen (Tylenol) 650 mg Q4H PRN ORAL Headache 12/19/16 15:30 01/18/17 15:29 Acetaminophen (Tylenol) 650 mg Q4H PRN ORAL T>100.5 12/19/16 15:30 01/18/17 15:29 Albuterol Sulfate (Proventil) 2.5 mg Q4H PRN HHN WHEEZING 12/20/16 10:45 12/25/16 10:44 Amlodipine Besylate (Norvasc) 10 mg DAILY ORAL 12/19/16 16:00 01/18/17 15:59 12/20/16 08:39 Ascorbic Acid (Vitamin C) 500 mg DAILY ORAL 12/20/16 09:00 01/19/17 08:59 12/20/16 08:37 Bisacodyl (Dulcolax) 10 mg DAILYPRN PRN RECTAL Constipation 12/19/16 15:30 01/18/17 15:29 Dextrose (Dextrose 50%) STAT PRN IV Hypoglycemia 12/19/16 16:00 01/18/17 15:59 Docusate Sodium (Colace) 100 mg TWICE A DAY ORAL 12/19/16 18:00 01/18/17 17:59 12/20/16 08:39 Duloxetine HCl (Cymbalta) 30 mg DAILY ORAL 12/20/16 09:00 01/19/17 08:59 12/20/16 08:40 Fluticasone/ Vilanterol (Breo Ellipta 200/25) 1 puffs DAILY INH 12/20/16 11:30 01/19/17 11:29 12/20/16 12:01 Heparin Sodium/ Dextrose 500 ml @ 30.844 mls/ hr adjust per protocol IV 12/20/16 06:45 01/19/17 06:44 12/20/16 09:45 Hydromorphone HCl (Dilaudid) 0.5 mg Q3H PRN IVP Mild Pain (Pain Scale 1-3) 12/19/16 15:30 12/26/16 15:29 Hydromorphone HCl (Dilaudid) 1 mg Q3H PRN IVP Moderate Pain (Pain Scale 4-6) 12/19/16 15:30 12/26/16 15:29 Hydromorphone HCl (Dilaudid) 2 mg Q3H PRN IVP Severe Pain (Pain Scale 7-10) 12/19/16 15:30 12/26/16 15:29 12/20/16 11:51 Insulin Aspart (NovoLOG) BEFORE MEALS AND HS SUBQ 12/19/16 17:00 01/18/17 16:59 12/20/16 11:50 Insulin Detemir (Levemir) 10 units Q12HR SUBQ 12/19/16 21:00 01/18/17 20:59 12/20/16 08:44 Irbesartan (Avapro) 75 mg DAILY ORAL 12/20/16 09:00 01/19/17 08:59 12/20/16 08:39 Lactulose (Cephulac) 20 gm THREE TIMES A DAY ORAL 12/19/16 18:00 01/18/17 17:59 Levothyroxine Sodium (Synthroid) 25 mcg ACBREAKFAST ORAL 12/20/16 06:30 01/19/17 06:29 12/20/16 06:03 Magnesium Hydroxide (Mom) 30 ml HSPRN PRN ORAL Constipation 12/19/16 21:00 01/18/17 20:59 Metformin HCl (Glucophage) 1,000 mg TWICE A DAY ORAL 12/20/16 09:00 01/19/17 08:59 Nitroglycerin (Ntg) 0.4 mg Q5M PRN SL Prn Chest Pain 12/19/16 15:30 01/18/17 15:29 Ondansetron HCl (Zofran) 4 mg Q6H PRN IVP Nausea & Vomiting 12/19/16 15:30 01/18/17 15:29 Polyethylene Glycol (Miralax) 17 gm BEDTIME ORAL 12/20/16 21:00 01/19/17 20:59 Polyethylene Glycol (Miralax) 17 gm DAILYPRN PRN ORAL Constipation 12/19/16 15:30 01/18/17 15:29 Potassium Chloride (K-Dur) 40 meq TWICE A DAY ORAL 12/20/16 09:00 12/21/16 08:59 12/20/16 08:39 Pravastatin Sodium (Pravachol) 40 mg BEDTIME ORAL 12/19/16 21:00 01/18/17 20:59 Pregabalin (Lyrica) 75 mg THREE TIMES A DAY ORAL 12/19/16 18:00 01/18/17 17:59 12/20/16 08:38 Sennosides (Senokot) 1 mg DAILY ORAL 12/20/16 09:00 01/19/17 08:59 12/20/16 08:40 Sucralfate (Carafate) 1 gm FOUR TIMES A DAY ORAL 12/19/16 18:00 01/18/17 17:59 12/20/16 08:37 Assessment/Plan Problem List: (1) S/P insertion of IVC (inferior vena caval) filter ICD Codes: Z95.828 - Presence of other vascular implants and grafts SNOMED: 553209791, 287604149 (2) Hypothyroidism ICD Codes: E03.9 - Hypothyroidism, unspecified SNOMED: 02952906 (3) Diabetes mellitus, type II ICD Codes: E11.9 - Type 2 diabetes mellitus without complications SNOMED: 82849245 (4) CAD (coronary artery disease) ICD Codes: I25.10 - Atherosclerotic heart disease of [place] coronary artery without angina pectoris SNOMED: 52147737 (5) COPD (chronic obstructive pulmonary disease) ICD Codes: J44.9 - Chronic obstructive pulmonary disease, unspecified SNOMED: 78254830 (6) HTN (hypertension) ICD Codes: I10 - Essential (primary) hypertension SNOMED: 19782982 Assessment/Plan on heparin drip awaiting vascular consult or transfer to [facility] f/u on tumor markers venous doppler of legs LEVAR HUGHES Dec 20, 2016 12:38
[2016-12-20] MEDS ORDERED: Heparin 5000 units/ml inj IV ONE (14:15)
[2016-12-20] MEDS ORDERED: Miralax 17gm pkt ORAL SCH (21:00)
[2016-12-21 04:00] VITALS: BP 129/77
[2016-12-21 05:00] LABS: BASOPHILS % (AUTO) 1.1 % (0.0-2.0); EOSINOPHILS % (AUTO) 4.8 % (0.0-3.0); LYMPHOCYTES % (AUTO) 28.4 % (20.0-45.0); MEAN CORPUSCULAR HEMOGLOBIN 30.2 PG (27.0-31.0); MEAN CORPUSCULAR HGB CONC 33.1 G/DL (32.0-36.0); MEAN CORPUSCULAR VOLUME 91 FL (80-99); MEAN PLATELET VOLUME 8.9 FL (6.5-10.1); MONOCYTES % (AUTO) 6.6 % (1.0-10.0); NEUTROPHILS % (AUTO) 59.1 % (45.0-75.0); PLATELET COUNT 292 K/UL (150-450); RED CELL DISTRIBUTION WIDTH 14.9 % (11.6-14.8); WHITE BLOOD COUNT 5.7 K/UL (4.8-10.8)
[2016-12-21 05:15] LABS: ANION GAP 9 mmol/L (5-15); CALCIUM 9.3 MG/DL (8.5-10.1); CARBON DIOXIDE 23 MMOL/L (21-32); CHLORIDE 107 MMOL/L (98-107); CREATININE 1.2 MG/DL (0.55-1.30); MAGNESIUM 1.8 MG/DL (1.8-2.4); POTASSIUM 3.8 MMOL/L (3.5-5.1); SODIUM 139 MMOL/L (136-145)
[2016-12-21] MEDS: NovoLOG Insulin Flexpen SUBQ SCH ×3 (06:30→17:22)
[2016-12-21] MEDS: Levothyroxine 25mcg tab ORAL SCH (06:32)
[2016-12-21 08:00] VITALS: BP 131/78
[2016-12-21] MEDS: Breo Ellipta 200/25mcg-14 dose INH SCH (08:18)
[2016-12-21] MEDS: metFORMIN 500mg tab ORAL SCH ×2 (09:34→17:41)
[2016-12-21] MEDS: Ascorbic Acid 500mg tab ORAL SCH (09:35)
[2016-12-21] MEDS: DULoxetine 30mg cap ORAL SCH (09:35)
[2016-12-21] MEDS: Sucralfate 1gm tab ORAL SCH ×3 (09:35→17:37)
[2016-12-21] MEDS: Sennosides 8.6mg ORAL SCH (09:36)
[2016-12-21] MEDS: Lyrica 75mg cap ORAL SCH ×3 (09:37→17:39)
[2016-12-21] MEDS: Lactulose 20gm/30ml UDC ORAL SCH ×3 (09:45→17:37)
[2016-12-21] MEDS: Docusate 100mg cap ORAL SCH ×2 (09:45→17:37)
[2016-12-21] MEDS: Levemir Flexpen SUBQ SCH (09:48)
--- NOTE | 2016-12-21 11:00 | Consultation ---
DATE OF CONSULTATION: 12/20/2016 HEMATOLOGY/ONCOLOGY CONSULTATION CONSULTING PHYSICIAN: Shyam Garcia M.D. ATTENDING PHYSICIAN: Marco Bowling M.D. REQUESTING PHYSICIAN: Marco Bowling M.D. CURRENT COMPLAINT AND HISTORY OF PRESENT ILLNESS: Dear Dr. Bowling: Today, I had an opportunity to see one of your patients, who as you are well aware is a 75-year-old delightful gentleman with a history of colon cancer, status post resection in 1985, status post left nephrectomy secondary to renal cancer in 2003, history of liver metastasis, history of DVT and pulmonary embolism, status post IVC filter placement in year 2013. The patient failed trial removal of his IVC filter. , history of diabetes mellitus, COPD, and hypothyroidism. During evaluation, it was found that the patient developed some anemia. My service was called to handle the issue of failed attempt to remove IVC filter as well as some anemia. PAST MEDICAL HISTORY: 1. Status post colon resection in year 1985. 2. Status post IVC filter placement in 2013. 3. History of pulmonary embolism and history of DVT. 4. Status post left nephrectomy. 5. History of renal cell carcinoma in 2013. 6. Hypothyroidism. 7. Diabetes mellitus. 8. COPD. MEDICATIONS: 1. MiraLax. 2. Fluticasone. 3. Albuterol. 4. Ascorbic acid. 5. Cymbalta. 6. Glucophage. 7. Senokot. 8. Avapro. 9. Dextrose. 10. Levothyroxine. 11. Insulin. 12. Pravachol. 13. Colace. 14. Sucralfate. 15. NovoLog. ALLERGIES: NKDA. FAMILY HISTORY: Noncontributory. REVIEW OF SYSTEMS: GENERAL DESCRIPTION: The patient is not in any significant distress. PHYSICAL EXAMINATION: VITAL SIGNS: T-Max 99 degrees, respiratory rate 20, pulse 80, and blood pressure 120/80. HEENT: Head normocephalic and atraumatic. NECK: Supple. No thyroid enlargement. No lymphadenopathy. LUNGS: Decreased breath sounds bilaterally with few rhonchi in the base. HEART: S1 and S2 regular. ABDOMEN: Soft and benign. No organomegaly present. Bowel sounds present. EXTREMITIES: No cyanosis, clubbing, or edema. LABORATORY DATA: WBC 7.0, hemoglobin 12.4, hematocrit 39.9, and platelet count 284,000. Creatinine 1.1. IMPRESSION: 1. Metastatic colon cancer with liver metastasis. 2. Status post right hemicolectomy in 1985. 3. History of renal cell carcinoma, diagnosed in 2003. 4. Status post left nephrectomy in 2003. 5. History of pulmonary emboli. 6. History of deep venous thrombosis. 7. Status post inferior vena cava filter placement in 2013. 8. Status post unsuccessful attempt to remove inferior vena cava filter. 9. Diabetes mellitus. 10. Chronic obstructive pulmonary disease. 11. Hypothyroidism. 12. Failure to thrive. 13. Hypertension. 14. Elevated CEA. RECOMMENDATIONS: 1. Watch count. 2. Watch coagulopathy. 3. PRBC transfusion p.r.n. basis. 4. Skin care. 5. Nutrition. 6. Close followup. 7. IV heparin. 8. Vascular surgery evaluation. 9. Possible transfer to [facility]. Shyam Garcia MD DR: ROSIO/richard JOB#: [id number] CC:
--- NOTE | 2016-12-21 11:40 | Pulmonology Progress Note ---
Assessment/Plan Problems: (1) S/P insertion of IVC (inferior vena caval) filter (2) Hypothyroidism (3) Diabetes mellitus, type II (4) CAD (coronary artery disease) (5) COPD (chronic obstructive pulmonary disease) (6) HTN (hypertension) Assessment/Plan on heparin drip f/u labs f/u h/h symptomatic treatment monitor BP Subjective ROS Limited/Unobtainable: No HEENT: Repors: no symptoms Respiratory: Reports: no symptoms Allergies: Coded Allergies: AMOXICILLIN (Verified Allergy, Severe, break out, 12/19/16) AMPICILLIN (Unverified Allergy, Severe, break out , 12/19/16) PENICILLINS (Verified Allergy, Severe, break out , 12/19/16) Objective Last 24 Hour Vital Signs Date Time Temp Pulse Resp B/P (MAP) Pulse Ox O2 Delivery O2 Flow Rate FiO2 12/21/16 09:35 131/78 12/21/16 09:34 80 131/78 12/21/16 08:20 80 16 98 Nasal Cannula 2.0 28 12/21/16 08:20 80 16 98 Nasal Cannula 2.0 28 12/21/16 08:00 97.7 87 21 131/78 97 Nasal Cannula 2.0 12/21/16 07:52 99 12/21/16 07:12 96 Nasal Cannula 3.0 32 12/21/16 07:12 Nasal Cannula 3.0 32 12/21/16 07:02 98.9 12/21/16 04:11 81 12/21/16 04:00 98.9 80 20 129/77 96 Nasal Cannula 2.0 12/21/16 00:00 82 12/20/16 23:45 99.0 80 20 134/81 94 Nasal Cannula 2.0 12/20/16 20:40 Nasal Cannula 3.0 32 12/20/16 20:40 95 Nasal Cannula 3.0 32 12/20/16 20:00 99.0 98 20 119/72 95 Nasal Cannula 2.0 12/20/16 19:11 94 12/20/16 16:00 98.7 90 20 136/82 98 Nasal Cannula 2.0 12/20/16 16:00 100 12/20/16 12:02 78 16 96 Nasal Cannula 2.0 28 12/20/16 12:01 75 16 96 Nasal Cannula 2.0 28 12/20/16 12:00 98.7 95 20 151/86 98 Nasal Cannula 2.0 12/20/16 12:00 92 Intake and Output 12/21/16 12/22/16 19:00 07:00 Intake Total 240 ml Output Total 190 ml Balance 50 ml Intake Oral 240 ml Output Urine Total 190 ml # Voids 1 General Appearance: WD/WN HEENT: normocephalic Respiratory/Chest: chest wall non-tender, lungs clear, normal breath sounds Cardiovascular: normal peripheral pulses, normal rate Abdomen: normal bowel sounds, soft, non tender Extremities: no clubbing Skin: no lesions Laboratory Tests 12/20/16 13:15: Activated Partial Thromboplast Time 46H 12/20/16 20:15: Activated Partial Thromboplast Time 119H 12/21/16 04:20: Activated Partial Thromboplast Time 91H, White Blood Count 5.7, Red Blood Count 4.50L, Hemoglobin 13.6L, Hematocrit 41.0L, Mean Corpuscular Volume 91, Mean Corpuscular Hemoglobin 30.2, Mean Corpuscular Hemoglobin Concent 33.1, Red Cell Distribution Width 14.9H, Platelet Count 292, Mean Platelet Volume 8.9, Neutrophils (%) (Auto) 59.1, Lymphocytes (%) (Auto) 28.4, Monocytes (%) (Auto) 6.6, Eosinophils (%) (Auto) 4.8H, Basophils (%) (Auto) 1.1, Sodium Level 139, Potassium Level 3.8, Chloride Level 107, Carbon Dioxide Level 23, Anion Gap 9, Blood Urea Nitrogen 15, Creatinine 1.2, Estimat Glomerular Filtration Rate , Glucose Level 239H, Calcium Level 9.3, Magnesium Level 1.8, Ammonia 46H, Alpha Fetoprotein [Pending] Current Medications Medications (Trade) Dose Ordered Sig/Jose Route PRN Reason Start Time Stop Time Status Last Admin Dose Admin Acetaminophen (Tylenol) 650 mg Q4H PRN ORAL Headache 12/19/16 15:30 01/18/17 15:29 Acetaminophen (Tylenol) 650 mg Q4H PRN ORAL T>100.5 12/19/16 15:30 01/18/17 15:29 Albuterol Sulfate (Proventil) 2.5 mg Q4H PRN HHN WHEEZING 12/20/16 10:45 12/25/16 10:44 Amlodipine Besylate (Norvasc) 10 mg DAILY ORAL 12/19/16 16:00 01/18/17 15:59 12/21/16 09:34 Ascorbic Acid (Vitamin C) 500 mg DAILY ORAL 12/20/16 09:00 01/19/17 08:59 12/21/16 09:35 Bisacodyl (Dulcolax) 10 mg DAILYPRN PRN RECTAL Constipation 12/19/16 15:30 01/18/17 15:29 Dextrose (Dextrose 50%) STAT PRN IV Hypoglycemia 12/19/16 16:00 01/18/17 15:59 Docusate Sodium (Colace) 100 mg TWICE A DAY ORAL 12/19/16 18:00 01/18/17 17:59 12/21/16 09:45 Duloxetine HCl (Cymbalta) 30 mg DAILY ORAL 12/20/16 09:00 01/19/17 08:59 12/21/16 09:35 Fluticasone/ Vilanterol (Breo Ellipta 200/25) 1 puffs DAILY INH 12/20/16 11:30 01/19/17 11:29 12/21/16 08:18 Heparin Sodium/ Dextrose 500 ml @ 32.658 mls/ hr adjust per protocol IV 12/20/16 06:45 01/19/17 06:44 12/20/16 22:28 Hydromorphone HCl (Dilaudid) 0.5 mg Q3H PRN IVP Mild Pain (Pain Scale 1-3) 12/19/16 15:30 12/26/16 15:29 Hydromorphone HCl (Dilaudid) 1 mg Q3H PRN IVP Moderate Pain (Pain Scale 4-6) 12/19/16 15:30 12/26/16 15:29 Hydromorphone HCl (Dilaudid) 2 mg Q3H PRN IVP Severe Pain (Pain Scale 7-10) 12/19/16 15:30 12/26/16 15:29 12/21/16 09:33 Insulin Aspart (NovoLOG) BEFORE MEALS AND HS SUBQ 12/19/16 17:00 01/18/17 16:59 12/21/16 06:30 Insulin Detemir (Levemir) 10 units Q12HR SUBQ 12/19/16 21:00 01/18/17 20:59 12/21/16 09:48 Irbesartan (Avapro) 75 mg DAILY ORAL 12/20/16 09:00 01/19/17 08:59 12/21/16 09:35 Lactulose (Cephulac) 20 gm THREE TIMES A DAY ORAL 12/19/16 18:00 01/18/17 17:59 12/21/16 09:45 Levothyroxine Sodium (Synthroid) 25 mcg ACBREAKFAST ORAL 12/20/16 06:30 01/19/17 06:29 12/21/16 06:32 Magnesium Hydroxide (Mom) 30 ml HSPRN PRN ORAL Constipation 12/19/16 21:00 01/18/17 20:59 Metformin HCl (Glucophage) 1,000 mg TWICE A DAY ORAL 12/20/16 09:00 01/19/17 08:59 12/21/16 09:34 Nitroglycerin (Ntg) 0.4 mg Q5M PRN SL Prn Chest Pain 12/19/16 15:30 01/18/17 15:29 Ondansetron HCl (Zofran) 4 mg Q6H PRN IVP Nausea & Vomiting 12/19/16 15:30 01/18/17 15:29 Polyethylene Glycol (Miralax) 17 gm BEDTIME ORAL 12/20/16 21:00 01/19/17 20:59 12/20/16 21:22 Polyethylene Glycol (Miralax) 17 gm DAILYPRN PRN ORAL Constipation 12/19/16 15:30 01/18/17 15:29 Pravastatin Sodium (Pravachol) 40 mg BEDTIME ORAL 12/19/16 21:00 01/18/17 20:59 12/20/16 21:22 Pregabalin (Lyrica) 75 mg THREE TIMES A DAY ORAL 12/19/16 18:00 01/18/17 17:59 12/21/16 09:37 Sennosides (Senokot) 1 mg DAILY ORAL 12/20/16 09:00 01/19/17 08:59 12/21/16 09:36 Sucralfate (Carafate) 1 gm FOUR TIMES A DAY ORAL 12/19/16 18:00 01/18/17 17:59 12/21/16 09:35 LEVAR HUGHES Dec 21, 2016 11:40
[2016-12-21 12:00] VITALS: BP 141/79
[2016-12-21 12:01] VITALS: BP 141/79
[2016-12-21 16:00] VITALS: BP 139/90
[2016-12-21] MEDS: Heparin 25,000u/D5W 500ml 500 ML IV SCH (16:16)
--- NOTE | 2016-12-21 16:30 | Internal Med Progress Note ---
Subjective Date of Service: Dec 21, 2016 Physician Name Callejas,Tyra Attending Physician Marco Bowling MD Current Medications Medications (Trade) Dose Ordered Sig/Jose Route PRN Reason Start Time Stop Time Status Last Admin Dose Admin Acetaminophen (Tylenol) 650 mg Q4H PRN ORAL Headache 12/19/16 15:30 01/18/17 15:29 Acetaminophen (Tylenol) 650 mg Q4H PRN ORAL T>100.5 12/19/16 15:30 01/18/17 15:29 Albuterol Sulfate (Proventil) 2.5 mg Q4H PRN HHN WHEEZING 12/20/16 10:45 12/25/16 10:44 Amlodipine Besylate (Norvasc) 10 mg DAILY ORAL 12/19/16 16:00 01/18/17 15:59 12/21/16 09:34 Ascorbic Acid (Vitamin C) 500 mg DAILY ORAL 12/20/16 09:00 01/19/17 08:59 12/21/16 09:35 Bisacodyl (Dulcolax) 10 mg DAILYPRN PRN RECTAL Constipation 12/19/16 15:30 01/18/17 15:29 Dextrose (Dextrose 50%) STAT PRN IV Hypoglycemia 12/19/16 16:00 01/18/17 15:59 Docusate Sodium (Colace) 100 mg TWICE A DAY ORAL 12/19/16 18:00 01/18/17 17:59 12/21/16 09:45 Duloxetine HCl (Cymbalta) 30 mg DAILY ORAL 12/20/16 09:00 01/19/17 08:59 12/21/16 09:35 Fluticasone/ Vilanterol (Breo Ellipta 200/25) 1 puffs DAILY INH 12/20/16 11:30 01/19/17 11:29 12/21/16 08:18 Heparin Sodium/ Dextrose 500 ml @ 32.658 mls/ hr adjust per protocol IV 12/20/16 06:45 01/19/17 06:44 12/21/16 16:16 Hydromorphone HCl (Dilaudid) 0.5 mg Q3H PRN IVP Mild Pain (Pain Scale 1-3) 12/19/16 15:30 12/26/16 15:29 Hydromorphone HCl (Dilaudid) 1 mg Q3H PRN IVP Moderate Pain (Pain Scale 4-6) 12/19/16 15:30 12/26/16 15:29 Hydromorphone HCl (Dilaudid) 2 mg Q3H PRN IVP Severe Pain (Pain Scale 7-10) 12/19/16 15:30 12/26/16 15:29 12/21/16 16:14 Insulin Aspart (NovoLOG) BEFORE MEALS AND HS SUBQ 12/19/16 17:00 01/18/17 16:59 12/21/16 12:12 Insulin Detemir (Levemir) 10 units Q12HR SUBQ 12/19/16 21:00 01/18/17 20:59 12/21/16 09:48 Irbesartan (Avapro) 75 mg DAILY ORAL 12/20/16 09:00 01/19/17 08:59 12/21/16 09:35 Lactulose (Cephulac) 20 gm THREE TIMES A DAY ORAL 12/19/16 18:00 01/18/17 17:59 12/21/16 12:42 Levothyroxine Sodium (Synthroid) 25 mcg ACBREAKFAST ORAL 12/20/16 06:30 01/19/17 06:29 12/21/16 06:32 Magnesium Hydroxide (Mom) 30 ml HSPRN PRN ORAL Constipation 12/19/16 21:00 01/18/17 20:59 Metformin HCl (Glucophage) 1,000 mg TWICE A DAY ORAL 12/20/16 09:00 01/19/17 08:59 12/21/16 09:34 Nitroglycerin (Ntg) 0.4 mg Q5M PRN SL Prn Chest Pain 12/19/16 15:30 01/18/17 15:29 Ondansetron HCl (Zofran) 4 mg Q6H PRN IVP Nausea & Vomiting 12/19/16 15:30 01/18/17 15:29 Polyethylene Glycol (Miralax) 17 gm BEDTIME ORAL 12/20/16 21:00 01/19/17 20:59 12/20/16 21:22 Polyethylene Glycol (Miralax) 17 gm DAILYPRN PRN ORAL Constipation 12/19/16 15:30 01/18/17 15:29 Pravastatin Sodium (Pravachol) 40 mg BEDTIME ORAL 12/19/16 21:00 01/18/17 20:59 12/20/16 21:22 Pregabalin (Lyrica) 75 mg THREE TIMES A DAY ORAL 12/19/16 18:00 01/18/17 17:59 12/21/16 12:42 Sennosides (Senokot) 1 mg DAILY ORAL 12/20/16 09:00 01/19/17 08:59 12/21/16 09:36 Sucralfate (Carafate) 1 gm FOUR TIMES A DAY ORAL 12/19/16 18:00 01/18/17 17:59 12/21/16 12:41 Allergies: Coded Allergies: AMOXICILLIN (Verified Allergy, Severe, break out, 12/19/16) AMPICILLIN (Unverified Allergy, Severe, break out , 12/19/16) PENICILLINS (Verified Allergy, Severe, break out , 12/19/16) ROS Limited/Unobtainable: No Constitutional: Reports: no symptoms HEENT: Reports: no symptoms Cardiovascular: Reports: no symptoms Respiratory: Reports: no symptoms Gastrointestinal/Abdominal: Reports: no symptoms Genitourinary: Reports: no symptoms Neurologic/Psychiatric: Reports: no symptoms Subjective 75 YO M admitted for IVC removal-S/P unsuccessful IVC removal 12/19/16. Cover for Int Med-Dr Bowling. Await transfer to [facility] Objective Last Vital Signs Date Time Temp Pulse Resp B/P (MAP) Pulse Ox O2 Delivery O2 Flow Rate FiO2 12/21/16 16:00 98.7 87 23 139/90 98 Nasal Cannula 2.0 12/21/16 08:20 28 Laboratory Tests Test 12/20/16 20:15 12/21/16 04:20 Activated Partial Thromboplast Time 119 SEC (23-33) H 91 SEC (23-33) H White Blood Count 5.7 K/UL (4.8-10.8) Red Blood Count 4.50 M/UL (4.70-6.10) L Hemoglobin 13.6 G/DL (14.2-18.0) L Hematocrit 41.0 % (42.0-52.0) L Mean Corpuscular Volume 91 FL (80-99) Mean Corpuscular Hemoglobin 30.2 PG (27.0-31.0) Mean Corpuscular Hemoglobin Concent 33.1 G/DL (32.0-36.0) Red Cell Distribution Width 14.9 % (11.6-14.8) H Platelet Count 292 K/UL (150-450) Mean Platelet Volume 8.9 FL (6.5-10.1) Neutrophils (%) (Auto) 59.1 % (45.0-75.0) Lymphocytes (%) (Auto) 28.4 % (20.0-45.0) Monocytes (%) (Auto) 6.6 % (1.0-10.0) Eosinophils (%) (Auto) 4.8 % (0.0-3.0) H Basophils (%) (Auto) 1.1 % (0.0-2.0) Sodium Level 139 MMOL/L (136-145) Potassium Level 3.8 MMOL/L (3.5-5.1) Chloride Level 107 MMOL/L (98-107) Carbon Dioxide Level 23 MMOL/L (21-32) Anion Gap 9 mmol/L (5-15) Blood Urea Nitrogen 15 mg/dL (7-18) Creatinine 1.2 MG/DL (0.55-1.30) Estimat Glomerular Filtration Rate mL/min (>60) Glucose Level 239 MG/DL (74-106) H Calcium Level 9.3 MG/DL (8.5-10.1) Magnesium Level 1.8 MG/DL (1.8-2.4) Ammonia 46 umol/L (11.2-31.7) H Alpha Fetoprotein Pending Intake and Output 12/21/16 12/22/16 19:00 07:00 Intake Total 240 ml Output Total 190 ml Balance 50 ml Intake Oral 240 ml Output Urine Total 190 ml # Voids 1 Objective General Appearance: WD/WN, no apparent distress, alert EENT: PERRL/EOMI, normal ENT inspection Neck: non-tender, normal alignment, supple Cardiovascular: normal peripheral pulses, normal rate, regular rhythm, no gallop/murmur, no JVD Respiratory/Chest: chest wall non-tender, no accessory muscle use, respiratory distress, crackles/rales, expiratory wheezing Abdomen: normal bowel sounds, non tender, soft, no organomegaly, no mass Extremities: normal range of motion, non-tender 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 (2) Deep vein thrombosis (DVT) Assessment & Plan: Failed IVC filter removal on 12/19/16. Await transfer to [facility] today (3) Hypothyroidism Assessment & Plan: Cont levoxyl (4) Hypercholesterolemia Assessment & Plan: Continue pravachol (5) CAD (coronary artery disease) (6) COPD (chronic obstructive pulmonary disease) Assessment & Plan: Cont Breo and albuterol nebs. see pulmonary note. (7) HTN (hypertension) Assessment & Plan: Continue avapro and norvasc Status: not improved Assessment/Plan Transfer to [facility] today TYRA CALLEJAS Dec 21, 2016 16:30
--- NOTE | 2016-12-21 23:05 | General Progress Note ---
Assessment/Plan Assessment/Plan IMPRESSION # IVC filter removal at [facility] -> s/p attempts at removal, nonsuccessful #. Metastatic colon cancer with liver metastasis. --> Status post right hemicolectomy in 1985. #. History of renal cell carcinoma, diagnosed in 2003. #. Status post left nephrectomy in 2003. #. Diabetes mellitus. #. Chronic obstructive pulmonary disease. #. Hypothyroidism. #. Hypertension. #. Elevated CEA. Subjective ROS Limited/Unobtainable: Yes Allergies: Coded Allergies: AMOXICILLIN (Verified Allergy, Severe, break out, 12/19/16) AMPICILLIN (Unverified Allergy, Severe, break out , 12/19/16) PENICILLINS (Verified Allergy, Severe, break out , 12/19/16) Subjective pending transfer Objective Last 24 Hour Vital Signs Date Time Temp Pulse Resp B/P (MAP) Pulse Ox O2 Delivery O2 Flow Rate FiO2 12/21/16 16:00 98.7 87 23 139/90 98 Nasal Cannula 2.0 12/21/16 16:00 86 12/21/16 12:01 99.2 83 20 141/79 98 Nasal Cannula 2.0 12/21/16 12:00 93 12/21/16 12:00 99.2 83 20 141/79 98 Nasal Cannula 2.0 12/21/16 09:35 131/78 12/21/16 09:34 80 131/78 12/21/16 08:20 80 16 98 Nasal Cannula 2.0 28 12/21/16 08:20 80 16 98 Nasal Cannula 2.0 28 12/21/16 08:00 97.7 87 21 131/78 97 Nasal Cannula 2.0 12/21/16 07:52 99 12/21/16 07:12 96 Nasal Cannula 3.0 32 12/21/16 07:12 Nasal Cannula 3.0 32 12/21/16 07:02 98.9 12/21/16 04:11 81 12/21/16 04:00 98.9 80 20 129/77 96 Nasal Cannula 2.0 12/21/16 00:00 82 12/20/16 23:45 99.0 80 20 134/81 94 Nasal Cannula 2.0 Intake and Output 12/21/16 12/22/16 19:00 07:00 Intake Total 1101.256 ml Output Total 540 ml Balance 561.256 ml Intake Oral 840 ml IV Total 261.256 ml Output Urine Total 540 ml # Voids 2 Laboratory Tests 12/21/16 04:20: White Blood Count 5.7, Red Blood Count 4.50L, Hemoglobin 13.6L, Hematocrit 41.0L , Mean Corpuscular Volume 91, Mean Corpuscular Hemoglobin 30.2, Mean Corpuscular Hemoglobin Concent 33.1, Red Cell Distribution Width 14.9H, Platelet Count 292, Mean Platelet Volume 8.9, Neutrophils (%) (Auto) 59.1, Lymphocytes (%) (Auto) 28.4, Monocytes (%) (Auto) 6.6, Eosinophils (%) (Auto) 4.8H, Basophils (%) (Auto) 1.1, Activated Partial Thromboplast Time 91H, Sodium Level 139, Potassium Level 3.8, Chloride Level 107, Carbon Dioxide Level 23, Anion Gap 9, Blood Urea Nitrogen 15, Creatinine 1.2, Estimat Glomerular Filtration Rate , Glucose Level 239H, Calcium Level 9.3, Magnesium Level 1.8, Ammonia 46H, Alpha Fetoprotein [Pending] Height (Feet): 6 Height (Inches): 1.00 Weight (Pounds): 200 OLINDA MAST Dec 21, 2016 23:05
--- NOTE | 2016-12-24 09:01 | Diagnostic Imaging Report ---
APPROVED REPORT CPT Code: 51871 Present Symptoms Lower Extremity Pain: Bilateral BILATERAL: Imaging reveals a patent deep venous system bilaterally. There is no evidence of thrombus within the femoral, popliteal or tibial segments. The greater saphenous veins are also within normal limits. Doppler indicates normal spontaneous flow within these segments.
--- NOTE | 2017-01-01 18:29 | Discharge Summary ---
Discharge Summary Hospital Course Date of Admission Dec 20, 2016 at 22:13 Date of Discharge Dec 21, 2016 at 18:30 Admitting Diagnosis HPI Nii Nicole is a 76 year old male who was admitted on Dec 20, 2016 at 22: 13 for Deep Vein Thrombosis Hospital Course [id number] Discharge Discharge Disposition Patient was discharged to SNF/Subacute Facility(03) Discharge Diagnoses: Deirdre Walsh NP Jan 01, 2017 18:29
--- NOTE | 2017-01-02 03:00 | Discharge Summary 2 SIG ---
DATE OF ADMISSION: 12/20/2016 DATE OF DISCHARGE: 12/21/2016 BRIEF HOSPITAL COURSE: The patient is a 76-year-old male with history of vena cava filter placement in 2013 for venous thrombosis, was admitted for IVC filter removal as seemed filter was no longer needed. He has a history of colon CA, status post resection in 1985, status post left nephrectomy, secondary to renal cancer in 2003, history of liver metastasis, history of DVT and PE, history of diabetes mellitus, COPD, and hypothyroidism. Attempt to remove IVC filter was unsuccessful. The patient was started on anticoagulation with heparin drip and was eventually transferred to [facility]. FINAL DIAGNOSES: 1. Deep venous thrombosis with failed inferior vena cava removal on 12/19/2016. 2. Diabetes mellitus type 2. 3. Hypothyroidism. 4. Hypercholesterolemia. 5. Coronary artery disease. 6. Chronic obstructive pulmonary disease. 7. Hypertension. 8. Metastatic colon carcinoma with liver metastasis. 9. Renal cell carcinoma diagnosed in 2003, status post left nephrectomy. DISPOSITION: The patient was transferred to [facility]. Marco Bowling M.D. I have been assigned to dictate discharge summary on this account and I was not involved in the patient's management. Deirdre Walsh N.P. DR: MARCELLUS JOB#: [id number] CC:
== END 2016-12-21 18:30 | disposition short-term general hospital (02) | DRG 315 ==
LOC: RAD 08:40 → EDSTATUS 10:00 → 2W 15:18 → OBSVTOIN 12-20 22:13
PROC: B519ZZZ Fluoroscopy of Inferior Vena Cava (ICD-10-PCS; principal; 2016-12-20)
DX: T82.898A Other specified complication of vascular prosthetic devices, implants and grafts, initial encounter (principal); I87.1 Compression of vein; E11.9 Type 2 diabetes mellitus without complications; J44.9 Chronic obstructive pulmonary disease, unspecified; I10 Essential (primary) hypertension; D64.9 Anemia, unspecified; K27.9 Peptic ulcer, site unspecified, unspecified as acute or chronic, without hemorrhage or perforation; Y84.8 Other medical procedures as the cause of abnormal reaction of the patient, or of later complication, without mention of misadventure at the time of the procedure; Z86.718 Personal history of other venous thrombosis and embolism; E03.9 Hypothyroidism, unspecified; Z86.711 Personal history of pulmonary embolism; Z88.1 Allergy status to other antibiotic agents; Z88.0 Allergy status to penicillin; I25.10 Atherosclerotic heart disease of native coronary artery without angina pectoris; Z85.038 Personal history of other malignant neoplasm of large intestine; Z90.49 Acquired absence of other specified parts of digestive tract; Z85.528 Personal history of other malignant neoplasm of kidney; Z90.5 Acquired absence of kidney; Z85.05 Personal history of malignant neoplasm of liver; Z79.4 Long term (current) use of insulin; R97.0 Elevated carcinoembryonic antigen [CEA]; K59.09 Other constipation; R62.7 Adult failure to thrive
CPT/HCPCS: 36415; 36589; 74000; 80048; 80053; 82105; 82140; 82962; 83735; 85025; 85610; 85730; 93970; 94640; 94760; 96365; 96366; 96374; 96376; C8957; J1815; J8499; S5561

== ENCOUNTER 2018-07-14 11:48 | Outpatient (CLI) | payer MEDICARE, MEDICAID ==
[~2018-07-14 11:48] MED LIST changes: +DIOVAN80 MG ORAL
--- NOTE | 2018-07-14 14:25 | Diagnostic Imaging Report ---
Indication:Elevated Bun and Creatinine. Technique: Grayscale and duplex Doppler imaging of the kidneys performed. Comparison: None Findings: There are multiple cysts of varying size within the right kidney. The largest cyst is about 3.9 cm. The left kidney is absent. Right kidney measures 11.8 cm in length. Urinary bladder is unremarkable. IMPRESSION: Multiple cysts within the right kidney. No hydronephrosis. Left nephrectomy
== END 2018-07-14 13:48 | disposition home or self-care (01) ==
LOC: ULS 11:48
DX: R10.9 Unspecified abdominal pain (principal); C64.2 Malignant neoplasm of left kidney, except renal pelvis; Z90.5 Acquired absence of kidney; Z88.0 Allergy status to penicillin; N20.0 Calculus of kidney
CPT/HCPCS: 76770